=== PATIENT | male | born 1940 | race Caucasian/White ===

== ENCOUNTER 2019-12-14 08:19 | Inpatient (IN) ==
[2019-12-14] MEDS ORDERED: LACTATED RINGERS 1,000 ML IV ONE (08:29)
--- NOTE | 2019-12-14 08:57 | Emergency Department Note ---
Altered Mental Status HPI - General Chief Complaint: Altered Mental Status Stated Complaint: altered LOC Time Seen by Provider: 12/14/19 08:28 Source: patient Mode of arrival: wheelchair Limitations: no limitations - History of Present Illness HPI Narrative: This patient was found outside in front of the hospital by staff and he seemed confused so they brought him to the ER. The patient is able to relate quite a bit of history but he sounds like he had some confusion going on this morning. He does have a sore throat and cough. He has had some pain in his right hip and it sounds like he has had trochanteric bursitis in the past and is gotten cor tisone injections including a week ago. He relates that he was possibly supposed to come to the hospital today with his girlfriend but decided to come over early by himself with since there was no traffic and just seems a little confused about what is going on. He denies any chest pain nausea or vomiting does not feel very short of breath no headache of significance. Patient says he has a history of gout and has taken allopurinol and thinks that might be what is acting up in the hip at this time but he denies any pain in his feet. - Related Data Home Medications Medication Instructions Recorded Confirmed Allopurinol [Zyloprim] 300 mg PO DAILY 06/06/19 11/30/19 Carvedilol [Coreg] 12.5 mg PO BID 06/06/19 11/30/19 Eplerenone [Inspra] 25 mg PO DAILY 06/06/19 11/30/19 Folic Acid 1 mg PO DAILY 06/06/19 11/30/19 Furosemide [Lasix] 80 mg PO BID 06/06/19 11/30/19 Lisinopril [Zestril] 40 mg PO DAILY 06/06/19 11/30/19 Mirtazapine [Remeron] 30 mg PO HS 06/06/19 11/30/19 Pot Chloride/Pot Bicarb/Cit AC 20 meq PO DAILY 06/06/19 11/30/19 [Potassium Cl 25 Meq Tab Eff] Rosuvastatin [Crestor] 20 mg PO HS 06/06/19 11/30/19 Sertraline [Zoloft] 150 mg PO DAILY 06/06/19 11/30/19 amLODIPine [Norvasc] 10 mg PO DAILY 06/06/19 11/30/19 cycloSPORINE [Cyclosporine] 100 mg PO BID 06/06/19 11/30/19 Previous Rx's Medication Instructions Recorded prednisone 20 mg tablet 20 mg PO BID #10 tab 11/30/19 Allergies Allergy/AdvReac Type Severity Reaction Status Date / Time No Known Drug Allergies Allergy Verified 12/14/19 08:22 Review of Systems All systems ED: reviewed and negative except as stated. Past Medical History - Past Medical History [facility] Narrative: Medical History (Last Reviewed 11/30/19 @ 14:34 by Bacilio Babcock PA-C) Acute retention of urine (Acute) Acute alcohol intoxication (Acute) Low back pain (Chronic) Systolic dysfunction (Chronic) Aortic insufficiency (Chronic) Aortic stenosis (Chronic) Left ventricular hypertrophy (Chronic) Vitamin D insufficiency (Chronic) EVERARDO (obstructive sleep apnea) (Chronic) Gout (Chronic) Uric acid kidney stone (Chronic) Obesity (Chronic) Hyperlipidemia (Chronic) Chronic kidney disease (Chronic) Hypertension (Chronic) Urinary tract infection (Acute) Retention of urine (Acute) Past Surgical History (Last Reviewed 11/30/19 @ 14:35 by Bacilio Babcock PA-C) H/O repair of rotator cuff (Chronic) History of heart valve repair (Chronic 03/28/15) History of lumbar fusion (Chronic) Family History (Last Reviewed 11/30/19 @ 14:35 by Bacilio Babcock PA-C) Other No pertinent family history Medical history: Reports: hyperlipidemia, hypertension, kidney stones, renal disease, valvular heart disease, other (acute retention of urine.rostate cancer. Systolic dysfunction. Aortic insufficiency and aortic stenosis. Left ventricular hypertrophy. Vitamin D insufficiency. Obstructive sleep apnea. Gout. Urinary tract infection.) Surgical history ED: Reports: heart valve replacement, other (repair of rotator cuff.) - Social History smoking status: Never smoker Alcohol use: Reports: None Drug use: Reports: none Physical Exam He does have some mild tenderness about the right hip area. Limitations: no limitations General appearance: alert Head: atraumatic Eye: Present: normal appearance ENT: Present: normal exam Neck: Present: normal inspection Chest: Present: normal inspection Respiratory: Present: normal lung sounds bilaterally Cardiovascular: Present: regular rate, normal rhythm, normal heart sounds Abdominal: Present: soft. Absent: distention, tenderness Neurological: Present: alert Psychiatric: Present: normal affect Skin: Present: warm, dry Course Vital Signs Temperature 97.5 F 12/14/19 08:20 Pulse Rate 73 12/14/19 08:20 Respiratory Rate 18 12/14/19 08:20 Blood Pressure 127/69 12/14/19 08:20 Pulse Oximetry (%) 97 12/14/19 08:20 Temperature 97.5 F 12/14/19 08:20 Pulse Rate 73 12/14/19 08:20 Respiratory Rate 18 12/14/19 08:20 Blood Pressure 127/69 12/14/19 08:20 Pulse Oximetry (%) 97 12/14/19 08:20 Altered Mental Status - MDM Narrative Medical decision making narrative: I will be handing this patient off to Dr. Lipscomb at change of shift at 9 AM. - Lab Data Result diagrams: 12/14/19 08:40 12/14/19 08:39 Disposition Pt seen by VENEER SANDER/PA only: No Clinical Impression: Altered mental status Disposition: Still a Patient Condition: Good Referrals: Junior Mancera MD [Primary Care Provider] -
--- NOTE | 2019-12-14 08:59 | XRay Report ---
CLINICAL INFORMATION: Altered mental status COMPARISON: 03/28/2015 FINDINGS: Mild cardiomegaly is unchanged. Mitral annular calcification again noted. Mediastinum and pulmonary vessels are normal. Lungs are clear. No effusions. IMPRESSION: Mild cardiomegaly. No acute disease Interpreted and Authenticated by: Lane Grimaldo 12/14/19
--- NOTE | 2019-12-14 09:01 | Cat Scan Report ---
CLINICAL INFORMATION: COMPARISON: None. TECHNIQUE: 2.5 mm helical slices were obtained in the skull base to vertex. Following reconstruction, axial reformatted images were reviewed at bone and parenchymal windows. The exam was performed using radiation dose optimization techniques including, but not limited to, automated exposure control, adjustment of the mA and/or kV according to patient size and use of iterative reconstruction technique. FINDINGS: The ventricles, sulci, fissures, and cisterns are symmetrically enlarged compatible with mild age-related atrophy. No extra-axial fluid collections are identified. Mild patchy chronic ischemic changes in the deep cerebral white matter expected for age. There is no evidence of hemorrhage, mass effect, or edema. Bone windows show no osseous abnormality. IMPRESSION: Mild atrophy and mild chronic ischemic changes in the deep cerebral white matter - expected for age. Opacification right posterior ethmoid air cell and mucosal thickening in the remaining visualized ethmoid air cells. Interpreted and Authenticated by: Lane Grimaldo 12/14/19
[2019-12-14 09:12] LABS: Basophils # (Auto) 0.03 K/mcL (0.00-0.30); Basophils % (Auto) 0.4 % (0.0-2.0); Eosinophils % (Auto) 4.9 % (0.0-7.0); Granulocytes % (Auto) 55.3 % (38.0-78.0); Hematocrit 35.6 % (40.1-51.0); Hemoglobin 11.9 g/dL (13.7-17.5); Lymphocytes # (Auto) 2.07 K/mcL (1.50-4.80); Lymphocytes % (Auto) 25.2 % (15.5-49.0); Mean Cell Volume 95.4 fL (80.0-100.0); Mean Corpuscular HGB Conc 33.4 g/dL (31.0-36.0); Mean Platelet Volume 12.5 fL (7.4-10.4); Monocytes # (Auto) 1.17 K/mcL (0.10-0.90); Monocytes % (Auto) 14.2 % (1.0-12.0); Platelet Count 127 K/mcL (140-440); RBC 3.73 M/mcL (4.63-6.08); Red Cell Distribution Width 13.6 % (11.5-14.5); WBC 8.2 K/mcL (4.50-11.00)
[2019-12-14 09:31] LABS: ALT/SGPT 34 U/l (0-40); AST/SGOT 15 U/l (0-37); Albumin 3.9 gm/dL (3.2-5.2); Albumin/Globulin Ratio 1.3 (1.0-2.3); Alkaline Phosphatase 66 U/L (39-117); Bilirubin,Total 0.5 mg/dL (0.0-1.0); Blood Urea Nitrogen 39 mg/dl (8-23); Calcium 10.4 mg/dl (8.6-10.4); Carbon Dioxide 22 mmol/L (22-30); Chloride 101 mmol/L (96-108); Globulin 3.1 gm/dL (2.2-3.7); Glomerular Filtration Rate 23; Glucose 101 mg/dL (70-105)
[2019-12-14] MEDS ORDERED: 0.9 % SODIUM CHLORIDE 1,000 ML IV ONE (09:37)
--- NOTE | 2019-12-14 10:13 | Emergency Department Note ---
General Adult HPI - General Chief complaint: Altered Mental Status Stated complaint: altered LOC Time Seen by Provider: 12/14/19 08:28 Source: patient Mode of arrival: wheelchair Limitations: no limitations - History of Present Illness HPI Narrative: 79-year-old male comes in for evaluation of general malaise. Checked out to me by Dr. devlin at shift change. I reviewed his note Went to reevaluate the patient and note the patient has gross hearing loss but is able to communicate when speaking loudly. He was sleeping soundly at the time of my entrance Of note he reports some jewelry making with mercury (?) and drinking alcohol last night - Related Data Home Medications Medication Instructions Recorded Confirmed Allopurinol [Zyloprim] 300 mg PO DAILY 06/06/19 12/14/19 Carvedilol [Coreg] 12.5 mg PO BID 06/06/19 12/14/19 Eplerenone [Inspra] 50 mg PO DAILY 06/06/19 12/14/19 Furosemide [Lasix] 80 mg PO BID 06/06/19 12/14/19 Lisinopril [Zestril] 40 mg PO DAILY 06/06/19 12/14/19 Mirtazapine [Remeron] 30 mg PO HS 06/06/19 12/14/19 Pot Chloride/Pot Bicarb/Cit AC 20 meq PO DAILY 06/06/19 12/14/19 [Potassium Cl 25 Meq Tab Eff] Rosuvastatin [Crestor] 20 mg PO HS 06/06/19 12/14/19 Sertraline [Zoloft] 150 mg PO DAILY 06/06/19 12/14/19 amLODIPine [Norvasc] 10 mg PO DAILY 06/06/19 12/14/19 HYDROcodone/APAP 5/325MG [[place] 1 tab PO Q6HP PRN 12/14/19 12/14/19 5-325Mg] Zolpidem Tartrate [Zolpidem 12.5 mg PO HS 12/14/19 12/14/19 Tartrate ER] Allergies Allergy/AdvReac Type Severity Reaction Status Date / Time No Known Drug Allergies Allergy Verified 12/14/19 08:22 Past Medical History - Past Medical History Source: old records reviewed Medical history: Reports: hyperlipidemia, hypertension, kidney stones, renal disease, valvular heart disease, other (acute retention of urine.rostate cancer. Systolic dysfunction. Aortic insufficiency and aortic stenosis. Left ventricular hypertrophy. Vitamin D insufficiency. Obstructive sleep apnea. Gou t. Urinary tract infection.) Surgical history ED: Reports: heart valve replacement, other (repair of rotator cuff.) - Social History smoking status: Never smoker Alcohol use: Reports: Frequently Drug use: Reports: none Physical Exam He was sleeping at the time of my entrance. Gross hearing loss is noted. Does have some black rivers on his fingers but is unclear what this is from Limitations: no limitations General appearance: alert Course Vital Signs Temperature 97.5 F 12/14/19 08:20 Pulse Rate 73 12/14/19 08:20 Respiratory Rate 18 12/14/19 08:20 Blood Pressure 127/69 12/14/19 08:20 Pulse Oximetry (%) 97 12/14/19 08:20 Temperature 97.5 F 12/14/19 08:20 Pulse Rate 89 12/14/19 11:17 Respiratory Rate 18 12/14/19 11:17 Blood Pressure 132/86 12/14/19 11:17 Pulse Oximetry (%) 98 12/14/19 11:17 Medical Decision Making - Lab Data Lab results reviewed: Yes I reviewed the patient's lab results. Result diagrams: 12/14/19 08:40 12/14/19 08:39 Lab Results 12/14/19 12/14/19 12/14/19 Range/Units 08:39 08:39 08:40 WBC 8.2 (4.50-11.00) K/mcL RBC 3.73 L (4.63-6.08) M/mcL Hgb 11.9 L (13.7-17.5) g/dL Hct 35.6 L (40.1-51.0) % MCV 95.4 (80.0-100.0) fL MCH 31.9 (26.0-34.0) pg MCHC 33.4 (31.0-36.0) g/dL RDW 13.6 (11.5-14.5) % Plt Count 127 L (140-440) K/mcL MPV 12.5 H (7.4-10.4) fL Gran % 55.3 (38.0-78.0) % Lymph % (Auto) 25.2 (15.5-49.0) % Boy[place] % (Auto) 14.2 H (1.0-12.0) % Eos % (Auto) 4.9 (0.0-7.0) % Baso % (Auto) 0.4 (0.0-2.0) % Gran # 4.56 (1.80-8.00) K/mcL Lymph # (Auto) 2.07 (1.50-4.80) K/mcL Boyle # (Auto) 1.17 H (0.10-0.90) K/mcL Eos # (Auto) 0.40 (0.00-0.70) K/mcL Baso # (Auto) 0.03 (0.00-0.30) K/mcL VBG Lactic Acid (0.5-2.0) mmol/L Sodium 135 (133-145) mmol/L Potassium 5.1 (3.3-5.1) mmol/L Chloride 101 (96-108) mmol/L Carbon Dioxide 22 (22-30) mmol/L Anion Gap 12.0 (8-16) BUN 39 H (8-23) mg/dl Creatinine 2.6 H (0.7-1.2) mg/dl GFR Calculation 23 Glucose 101 (70-105) mg/dL Calcium 10.4 (8.6-10.4) mg/dl Total Bilirubin 0.5 (0.0-1.0) mg/dL AST 15 (0-37) U/l ALT 34 (0-40) U/l Alkaline Phosphatase 66 (39-117) U/L Troponin T < 0.01 (0-0.03) ng/ml Total Protein 7.0 (5.9-8.4) gm/dL Albumin 3.9 (3.2-5.2) gm/dL Globulin 3.1 (2.2-3.7) gm/dL Albumin/Globulin Ratio 1.3 (1.0-2.3) Urine Color Urine Appearance Urine pH (5.0-9.0) Ur Specific [place] (1.000-1.035) Urine Protein (NEG) mg/dL Urine Glucose (UA) (NEG) mg/dL Urine Ketones (NEG) mg/dL Urine Occult Blood (<0.03) mg/dL Urine Nitrate (NEG) Urine Bilirubin (NEG) mg/dL Urine Urobilinogen (NEG) mg/dL Ur Leukocyte Esterase (NEG) /uL Urine RBC (0-1) /hpf Urine WBC (0-4) /hpf Ur Squamous Epith Cells (0-4) /hpf Urine Bacteria (0) /hpf Urine Mucus (0) /hpf Ur Culture Indicated? Ethyl Alcohol (<0.010) gm/dl 12/14/19 12/14/19 12/14/19 Range/Units 08:58 09:34 10:27 WBC (4.50-11.00) K/mcL RBC (4.63-6.08) M/mcL Hgb (13.7-17.5) g/dL Hct (40.1-51.0) % MCV (80.0-100.0) fL MCH (26.0-34.0) pg MCHC (31.0-36.0) g/dL RDW (11.5-14.5) % Plt Count (140-440) K/mcL MPV (7.4-10.4) fL Gran % (38.0-78.0) % Lymph % (Auto) (15.5-49.0) % [place]le % (Auto) (1.0-12.0) % Eos % (Auto) (0.0-7.0) % Baso % (Auto) (0.0-2.0) % Gran # (1.80-8.00) K/mcL Lymph # (Auto) (1.50-4.80) K/mcL [place] # (Auto) (0.10-0.90) K/mcL Eos # (Auto) (0.00-0.70) K/mcL Baso # (Auto) (0.00-0.30) K/mcL VBG Lactic Acid 1.3 (0.5-2.0) mmol/L Sodium (133-145) mmol/L Potassium (3.3-5.1) mmol/L Chloride (96-108) mmol/L Carbon Dioxide (22-30) mmol/L Anion Gap (8-16) BUN (8-23) mg/dl Creatinine (0.7-1.2) mg/dl GFR Calculation Glucose (70-105) mg/dL Calcium (8.6-10.4) mg/dl Total Bilirubin (0.0-1.0) mg/dL AST (0-37) U/l ALT (0-40) U/l Alkaline Phosphatase (39-117) U/L Troponin T (0-0.03) ng/ml Total Protein (5.9-8.4) gm/dL Albumin (3.2-5.2) gm/dL Globulin (2.2-3.7) gm/dL Albumin/Globulin Ratio (1.0-2.3) Urine Color Straw Urine Appearance Clear Urine pH 6.0 (5.0-9.0) Ur Specific [place] 1.011 (1.000-1.035) Urine Protein 30 A (NEG) mg/dL Urine Glucose (UA) Negative (NEG) mg/dL Urine Ketones Neg (NEG) mg/dL Urine Occult Blood Neg (<0.03) mg/dL Urine Nitrate Neg (NEG) Urine Bilirubin Neg (NEG) mg/dL Urine Urobilinogen Neg (NEG) mg/dL Ur Leukocyte Esterase Neg (NEG) /uL Urine RBC 0 (0-1) /hpf Urine WBC 1 (0-4) /hpf Ur Squamous Epith Cells 0 (0-4) /hpf Urine Bacteria 0 (0) /hpf Urine Mucus Few (0) /hpf Ur Culture Indicated? No Ethyl Alcohol < 0.010 (<0.010) gm/dl - Radiology Data Radiology results reviewed: Yes I reviewed the patient's radiology results. CT scan of the head shows ethmoid sinusitis but otherwise compatible with age degenerative findings. Chest x-ray no acute findings Disposition Pt seen by CHIEF HUMAN RESOURCES OFFICER/PA only: No Clinical Impression: Ethmoid sinusitis Qualifiers: Chronicity: acute Recurrence: not specified as recurrent Qualified Code(s): J01.20 - Acute ethmoidal sinusitis, unspecified Acute on chronic kidney failure Qualifiers: Acute renal failure type: unspecified Chronic kidney disease stage: unspecified stage Qualified Code(s): N17.9 - Acute kidney failure, unspecified; N18.9 - Chronic kidney disease, unspecified Altered mental status Qualifiers: Altered mental status type: unspecified Qualified Code(s): R41.82 - Altered mental status, unspecified Summary: On review of the labs it does look like he is kidneys have progressed to a baseline of 1.6 to now 2.6 creatinine level. BUN is also elevated indicating acute on chronic kidney failure. He is already received 1 L of fluid so we will give him a liter of normal saline as this is likely prerenal. Start amoxicillin for severe ethmoid sinusitis with lesser pansinusitis. Urinalysis is still pending as he has not urinated for us. Influenza and strep are negative Urinalysis [id number] dipstick showed normal urine Discussed with hospitalist, Dr. Raya who agreed to accept the patient for further care and evaluation in the hospital Mercury lab is pending Disposition: Xfer As Inpt ([facility]) Condition: Fair Referrals: Junior Mancera MD [Primary Care Provider] -
[2019-12-14 10:18] LABS: Alcohol, Blood < 10.0 mg/dL (<10); Alcohol,Blood < 0.010 gm/dl (<0.010)
[2019-12-14] MEDS ORDERED: AMOXICILLIN 400 MG/5 ML PO SCH (10:30)
[2019-12-14] MEDS ORDERED: AMOXICILLIN 250 MG PO ONE (11:13)
[2019-12-14 11:15] LABS: Appearance,Urine CLEAR; Bacteria,Urine 0 /hpf (0); Bilirubin,Urine NEG (NEG); Color,Urine STRAW; Culture Indicated,Urine NO; Glucose,Urine (UA) NEGATIVE (NEG); Ketones,Urine NEG (NEG); Leukocyte Esterase,Urine NEG /uL (NEG); Mucus,Urine FEW /hpf (0); Nitrate,Urine NEG (NEG); Protein,Urine 30 mg/dL (NEG); Specific Gravity,Urine 1.011 (1.000-1.035); Urine Blood NEG mg/dL (<0.03); Urine RBC 0 /hpf (0-1); Urine Squamous Epithelial Cell 0 /hpf (0-4); Urine WBC 1 /hpf (0-4); Urobilinogen,Urine NEG (NEG)
[2019-12-14] MEDS ORDERED: ONDANSETRON 4 MG/2 ML VIAL IV PRN (13:36)
[2019-12-14] MEDS ORDERED: ACETAMINOPHEN 325 MG TABLET PO PRN (13:36)
[2019-12-14] MEDS: 0.9 % SODIUM CHLORIDE 1,000 ML IV SCH (14:35)
[2019-12-14] MEDS: 0.9 % SODIUM CHLORIDE 10 ML SYRINGE IV SCH ×2 (14:36→22:20)
[2019-12-14] MEDS: HYDROcodone/APAP 5/325MG TABLET PO PRN (16:04)
--- NOTE | 2019-12-14 16:42 | Internal Med History&Physical ---
Medical - H&P: [facility] Patient information: Note initiated : 12/14/19 at 4:42 pm Service Date, if different from initiated Date: [] Patient: Jl Jones 79 y/o M admitted on 12/14/19 for Altered LOC. Chief Complaint: [] History of present illness: Mr. 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 Patient states that he awoke this morning on the floor "delirious". History is a bit circular, he tends to want to drift off to sleep. Eventually states that he did fall out of bed and just stayed on the floor. He had an appointment to establish at the pain clinic today, when he awoke this morning he decided just to drive to the clinic to await his appointment. There he is apparently found, was confused and brought to the ED. Patient states he had a couple beers last night. Used to be a heavy drinker but cut back significantly more than 10 years ago. 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 He was using methyl ethyl ketone as a solving, but was trying hard to avoid exposures. There is also a history obtained by Dr. Newman at the patient also had used mercury and some of his hobbies. Patient denies fever, he is felt chilled. Feels a little short of breath, but no cough or sputum production. He does have chronic left trochanteric hip pain which is stable. Denies any abdominal pain or nausea or vomiting. Denies any chest pain/tightness/squeezing. No dysuria. In the ED, the patient is found to have a creatinine of 2.6. Most recent creatinines in our system were 1.2/1.[address] range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 Reynolds, his n ephrologist, in October his creatinine was 1.9. He is being admitted for encephalopathy as well as acute renal failure. ROS unobtainable: other (Patient loses concentration on the interview and the remainder of a reliable review of systems cannot be obtained) Medical - H&P: PMH Medical history: Chronic kidney disease, stage III Membranous glomerulonephritis Low back pain (Chronic) Systolic dysfunction (Chronic) Aortic insufficiency (Chronic) Aortic stenosis (Chronic) Left ventricular hypertrophy (Chronic) Vitamin D insufficiency (Chronic) EVERARDO (obstructive sleep apnea) (Chronic) Gout (Chronic) Uric acid kidney stone (Chronic) Obesity (Chronic) Hyperlipidemia (Chronic) Chronic kidney disease (Chronic) Hypertension (Chronic) Urinary tract infection (Acute) Retention of urine (Acute) Surgical history: H/O repair of rotator cuff (Chronic) History of heart valve repair (Chronic 03/28/15) History of lumbar fusion (Chronic) Pertinent family history: Other No pertinent family history Social history: Patient lives by himself. He does not smoke. He occasionally drinks. Medical - H&P: Meds Home Medications Medication Instructions Recorded Confirmed Type Allopurinol [Zyloprim] 300 mg PO DAILY 06/06/19 12/14/19 History Carvedilol [Coreg] 12.5 mg PO BID 06/06/19 12/14/19 History Eplerenone [Inspra] 50 mg PO DAILY 06/06/19 12/14/19 History Furosemide [Lasix] 80 mg PO BID 06/06/19 12/14/19 History Lisinopril [Zestril] 40 mg PO DAILY 06/06/19 12/14/19 History Mirtazapine [Remeron] 30 mg PO HS 06/06/19 12/14/19 History Pot Chloride/Pot Bicarb/Cit AC 20 meq PO DAILY 06/06/19 12/14/19 History [Potassium Cl 25 Meq Tab Eff] Rosuvastatin [Crestor] 20 mg PO HS 06/06/19 12/14/19 History Sertraline [Zoloft] 150 mg PO DAILY 06/06/19 12/14/19 History amLODIPine [Norvasc] 10 mg PO DAILY 06/06/19 12/14/19 History HYDROcodone/APAP 5/325MG [[place] 1 tab PO Q6HP PRN 12/14/19 12/14/19 History 5-325Mg] Zolpidem Tartrate [Zolpidem 12.5 mg PO HS 12/14/19 12/14/19 History Tartrate ER] cycloSPORINE [Cyclosporine] 100 mg PO BID 12/14/19 12/14/19 History Allergies Allergy/AdvReac Type Severity Reaction Status Date / Time No Known Drug Allergies Allergy Verified 12/14/19 08:22 Medical - H&P: Exam - Constitutional Vitals: Temp Pulse Resp BP Pulse Ox 98.0 F 85 20 139/68 96 12/14/19 16:00 12/14/19 16:00 12/14/19 16:00 12/14/19 16:00 12/14/19 16:00 Exam: GENERAL: Awake, then drifts off. Oriented to self. Looks nontoxic. HEENT: Atraumatic. PERRL at 3 mm, conjunctiva clear, no scleral icterus. Heari ng grossly intact. Oropharynx with tacky mucous membranes, no lip or gum lesions, no pharyngeal erythema or exudate. Tongue midline, palate rises symmetrically. NECK: Supple without meningismus, good passive and active range of motion, no thyromegaly RESPIRATORY: Breath sounds clear bilaterally without wheezes or rhonchi. Respiratory effort is unlabored. CARDIOVASCULAR: Regular rate and rhythm, no murmur or rub. Trace peripheral edema. Carotid pulses 2+ without bruit. GI: Abdomen soft, obese, nontender, no guarding or rebound. Bowel sounds are present. Liver margin not palpable. MUSCULOSKELETAL: No joint erythema or swelling, normal range of motion in all extremities. SKIN: Intact, warm. Skin turgor normal. NEUROLOGIC: Cranial nerves II through XII grossly intact. Muscle mass normal. Strength 5/5 in the upper and lower extremities. Sensation intact to light touch bilaterally. PSYCHIATRIC: Alert but drifts off. Oriented to self, knows that he is at the hospital. Cannot assess mood or insight. Medical - H&P: Reslt - Labs CBC & Chem 7: 12/14/19 08:40 12/14/19 08:39 Labs: Short CBC 12/14/19 Range/Units 08:40 WBC 8.2 (4.50-11.00) K/mcL Hgb 11.9 L (13.7-17.5) g/dL Hct 35.6 L (40.1-51.0) % Plt Count 127 L (140-440) K/mcL BMP 12/14/19 08:39 Sodium 135 Potassium 5.1 Chloride 101 Carbon Dioxide 22 BUN 39 H Creatinine 2.6 H Glucose 101 Calcium 10.4 Cardiac Enzymes 12/14/19 Range/Units 08:39 Troponin T < 0.01 (0-0.03) ng/ml Liver Function 02/28/20 Range/Units 08:39 Total Bilirubin 0.5 (0.0-1.0) mg/dL AST 15 (0-37) U/l ALT 34 (0-40) U/l Alkaline Phosphatase 66 (39-117) U/L Albumin 3.9 (3.2-5.2) gm/dL Urine 12/14/19 Range/Units 10:27 Urine Color Straw Urine Appearance Clear Urine pH 6.0 (5.0-9.0) Ur Specific [place] 1.011 (1.000-1.035) Urine Protein 30 A (NEG) mg/dL Urine Glucose (UA) Negative (NEG) mg/dL - EKG Data EKG comments: NSR at 81, old LBBB - Imaging and Cardiology CT scan - head Status: image reviewed by me Additional comments: IMPRESSION: Mild atrophy and mild chronic ischemic changes in the deep cerebral white matter - expected for age. Opacification right posterior ethmoid air cell and mucosal thickening in the remaining visualized ethmoid air cells. Chest x-ray Status: image reviewed by me Additional comments: IMPRESSION: Mild cardiomegaly. No acute disease Medical - H&P: A/P - Narrative A/P Narrative: 79-year-old male found outside the hospital and medical office buildings confused. Encephalopathy. Unclear etiology. Renal failure not to such an extent that I might expect uremic induced changes in mental status. Possibly secondary to exposure to methyl ethyl ketone, though he states he was careful to avoid exposures. He also gave a history of possibly using mercury with his hobbies to Dr. Newman. Heavy metal exposure certainly possible, though this is an acute and not a chronic change in mental status. 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 States he did have a couple of beers last night, unlikely to be related to withdrawal. No evidence of chronic liver disease to suggest source of encephalopathy. Acute renal failure on chronic kidney disease. Baseline was CKD stage III. Creatinine was 1.9 on 10/26/2019. Has an underlying membranous glomerulonephritis. Supposed to be on cyclosporine, recently had that filled. Also on eplerenone, furosemide and lisinopril all of which could be contributing to his elevated creatinine. Ethmoid sinusitis with evidence of other pansinusitis. Unlikely to explain his presentation. 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
[2019-12-14] MEDS: HEPARIN 5,000 UNIT/ML VIAL SQ SCH (20:10)
[2019-12-14] MEDS: CARVEDILOL 12.5 MG TABLET PO SCH (20:10)
[2019-12-14] MEDS: AMOXICILLIN 250 MG CAPSULE PO SCH (20:10)
[2019-12-14] MEDS: MIRTAZAPINE 15 MG TABLET PO SCH (20:10)
[2019-12-14] MEDS: FAMOTIDINE 20 MG TABLET PO SCH (20:11)
[2019-12-14] MEDS: SENNOSIDES 1 TABLET PO SCH (20:11)
[2019-12-14] MEDS: ATORVASTATIN 20 MG TABLET PO SCH (20:11)
[2019-12-14] MEDS: DOCUSATE SODIUM 100 MG CAPSULE PO SCH (20:11)
[2019-12-15] MEDS: 0.9 % SODIUM CHLORIDE 1,000 ML IV SCH ×4 (00:29→21:53)
[2019-12-15] MEDS: HYDROcodone/APAP 5/325MG TABLET PO PRN ×2 (01:06→15:30)
[2019-12-15] MEDS: 0.9 % SODIUM CHLORIDE 10 ML SYRINGE IV SCH ×3 (05:02→20:06)
[2019-12-15 07:13] LABS: ALT/SGPT 24 U/l (0-40); AST/SGOT 12 U/l (0-37); Albumin 3.3 gm/dL (3.2-5.2); Albumin/Globulin Ratio 1.3 (1.0-2.3); Alkaline Phosphatase 55 U/L (39-117); Bilirubin,Direct < 0.2 mg/dL (0.0-0.3); Bilirubin,Total 0.5 mg/dL (0.0-1.0); Calcium 9.5 mg/dl (8.6-10.4); Carbon Dioxide 23 mmol/L (22-30); Chloride 104 mmol/L (96-108); Globulin 2.6 gm/dL (2.2-3.7); Glucose 123 mg/dL (70-105); Lactate Dehydrogenase 196 U/L (94-250); Phosphorous 3.5 mg/dL (2.7-4.5); Uric Acid 5.3 mg/dL (2.5-8.0)
[2019-12-15 07:14] LABS: Blood Urea Nitrogen 28 mg/dl (8-23); Glomerular Filtration Rate 31; Triglycerides 325 mg/dl (<150)
[2019-12-15] MEDS ORDERED: MAGNESIUM SULFATE 32.48 MEQ in DEXTROSE 5% IN WATER 50 ML IV ONE (09:22)
[2019-12-15] MEDS: ALLOPURINOL 300 MG TABLET PO SCH (09:24)
[2019-12-15] MEDS: CARVEDILOL 12.5 MG TABLET PO SCH ×2 (09:24→20:05)
[2019-12-15] MEDS: amLODIPine 10 MG TABLET PO SCH (09:24)
[2019-12-15] MEDS: AMOXICILLIN 250 MG CAPSULE PO SCH ×2 (09:24→20:05)
[2019-12-15] MEDS: DOCUSATE SODIUM 100 MG CAPSULE PO SCH ×2 (09:29→20:05)
[2019-12-15] MEDS: SERTRALINE 50 MG TABLET PO SCH (09:29)
[2019-12-15] MEDS: HEPARIN 5,000 UNIT/ML VIAL SQ SCH ×2 (09:29→20:06)
[2019-12-15] MEDS: FAMOTIDINE 20 MG TABLET PO SCH ×2 (09:29→20:05)
[2019-12-15] MEDS ORDERED: MAGNESIUM SULFATE 4 GM/100 ML BAG IV SCH (10:00)
--- NOTE | 2019-12-15 12:18 | Internal Med Progress Note ---
Medical - PN: Subj Patient information: Note initiated : 12/15/19 at 12:16 pm Service Date, if different from initiated Date: [] Patient: Jl Jones a 79 y/o M admitted on 12/14/19 for Altered LOC. Chief Complaint: [] Interval history: 12/14 Mr. 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 Patient states that he awoke this morning on the floor "delirious". History is a bit circular, he tends to want to drift off to sleep. Eventually states that he did fall out of bed and just stayed on the floor. He had an appointment to establish at the pain clinic today, when he awoke this morning he decided just to drive to the clinic to await his appointment. There he is apparently found, was confused and brought to the ED. Patient states he had a couple beers last night. Used to be a heavy drinker but cut back significantly more than 10 years ago. 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 He was using methyl ethyl ketone as a so lving, but was trying hard to avoid exposures. There is also a history obtained by Dr. Newman at the patient also had used mercury and some of his hobbies. Patient denies fever, he is felt chilled. Feels a little short of breath, but no cough or sputum production. He does have chronic left trochanteric hip pain which is stable. Denies any abdominal pain or nausea or vomiting. Denies any chest pain/tightness/squeezing. No dysuria. In the ED, the patient is found to have a creatinine of 2.6. Most recent creatinines in our system were 1.2/1.3 range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 Reynolds, his spiritual care coordinator, in October his creatinine was 1.9. He is being admitted for encephalopathy as well as acute renal failure. Patient is feeling better today. Vaguely recalls coming to the emergency dep artment yesterday. States that he has been "sick" for a few weeks, with malaise. Has felt cold and chilled alternating with feeling hot. Had some headache and myalgias, now with sore throat and congestion. Had evidence of sinusitis on CT. Evening before presentation, the patient had a couple glasses of wine. He was also working with methyl ethyl ketone, was not wearing gloves and notes he did get some on his hands, did not wear respirator, was working inside and not turned on the fan. Patient does not have a sense of smell, unsure if there were vapors. - Constitutional Vitals: Vital Signs Temp Pulse Resp BP Pulse Ox 98.6 F 70 22 171/88 96 12/15/19 07:53 12/15/19 07:53 12/15/19 07:53 12/15/19 07:53 12/15/19 07:53 Period Temp Pulse Resp BP Sys/Blackwood Pulse Ox Last 24 Hr 97.9 F-99 F 67-87 15-22 131-171/68-90 93-97 Intake and Output 12/14/19 12/15/19 12/15/19 21:59 05:59 13:59 Intake Total 240 1230 Output Total 725 1025 150 Balance -485 205 -150 Weight 206 lb 206 lb Patient Weight 12/16/19 05:59 Weight 206 lb Intake & Output: Intake & Output 12/14/19 12/15/19 12/15/19 21:59 05:59 13:59 Intake Total 240 1230 Output Total 725 1025 150 Balance -485 205 -150 Weight 206 lb 206 lb Intake: IV 990 Sodium Chloride 0.9% 1,000 ml @ 990 100 mls/hr IV .Q10H [facility] Rx#: [id number] Oral 240 240 Output: Void Amount 725 1025 150 Other: Meal Breakfast Percent of Meal Consumed 100% Feeding Ability Independent Urine Appearance Clear Clear Urine Color Pale Dark Yellow # Voids 1 Exam: General: In bed no acute distress HEENT: Hard of hearing, unchanged Chest: Clear bilaterally Cardiovascular: Regular, 1/6 systolic murmur along left sternal border Abdomen: Soft, nontender Neuro: Alert, oriented to person, place, situation. Vaguely recalls coming to the emergency department. Able to recall the events of the evening prior to his presentation yesterday. Feels generally weak. Medical - PN: Obj Da - Labs CBC & Chem 7: 12/14/19 08:40 12/15/19 05:32 Labs: Abnormal Lab Results 12/15/19 12/14/19 12/14/19 05:32 10:27 08:40 RBC 3.73 L Hgb 11.9 L Hct 35.6 L Plt Count 127 L MPV 12.5 H [place] % (Auto) 14.2 H [place] # (Auto) 1.17 H BUN 28 H Creatinine 2.0 H Glucose 123 H Magnesium 1.3 L Triglycerides 325 H Urine Protein 30 A 12/14/19 08:39 RBC Hgb Hct Plt Count MPV [place] % (Auto) [place] # (Auto) BUN 39 H Creatinine 2.6 H Glucose Magnesium Triglycerides Urine Protein Meds: Medications Acetaminophen (Tylenol) 650 mg PO Q6HP PRN; Protocol PRN Reason: Per Pain Protocol/Fever > 101 Hydrocodone Bitart/Acetaminophen ([place] 5/325mg) 1 tab PO Q6HP PRN; Protocol PRN Reason: Pain Last Admin: 12/15/19 01:06 Dose: 1 tab Documented by: Allopurinol (Zylopriim) 300 mg PO DAILY [facility] Last Admin: 12/15/19 09:24 Dose: 300 mg Documented by: Amlodipine Besylate (Norvasc) 10 mg PO DAILY [facility] Last Admin: 12/15/19 09:24 Dose: 10 mg Documented by: Amoxicillin (Amoxicillin) 500 mg PO BID [facility]; Protocol Last Admin: 12/15/19 09:24 Dose: 500 mg Documented by: Atorvastatin Calcium (Lipitor) 10 mg PO [facility] Last Admin: 12/14/19 20:11 Dose: 10 mg Documented by: Carvedilol (Coreg) 12.5 mg PO BID [facility] Last Admin: 12/15/19 09:24 Dose: 12.5 mg Documented by: Cyclosporine (Sandimmune) 100 mg PO BID [facility] Last Admin: 12/15/19 09:24 Dose: 100 mg Documented by: Docusate Sodium (Colace) 100 mg PO BID [facility] Last Admin: 12/15/19 09:29 Dose: 100 mg Documented by: Famotidine (Pepcid) 20 mg PO BID [facility] Last Admin: 12/15/19 09:29 Dose: 20 mg Documented by: Heparin Sodium (Porcine) (Heparin) 5,000 unit SQ Q12 [facility] Last Admin: 12/15/19 09:29 Dose: 5,000 unit Documented by: Sodium Chloride (Sodium Chloride 0.9%) 1,000 mls @ 100 mls/hr IV .Q10H [facility] Last Admin: 12/15/19 10:05 Dose: Not Given Documented by: Mirtazapine (Remeron) 30 mg PO [facility] Last Admin: 12/14/19 20:10 Dose: 30 mg Documented by: Ondansetron HCl (Zofran) 4 mg IV Q6HP PRN PRN Reason: Nausea And Vomiting Senna (Senokot) 2 tab PO [facility] Last Admin: 12/14/19 20:11 Dose: 2 tab Documented by: Sertraline HCl (Zoloft) 150 mg PO DAILY [facility] Last Admin: 12/15/19 09:29 Dose: 150 mg Documented by: Sodium Chloride (Saline Flush) 10 ml IV Q8 [facility] Last Admin: 12/15/19 05:02 Dose: Not Given Documented by: Medical - PN: A/P - Time Spent With Patient Total time spent is greater than 50% in coordination of care (as documented) at patient's floor/unit and/or counseling patient: Greater than 35 minutes - Narrative A/P Narrative: 79-year-old male found outside the hospital and medical office buildings confused. Encephalopathy. Improving. With further history, this possibly may represent a solvent exposure to methyl ethyl ketone. That can cause [employer] depression. Also can cause eye and throat irritation, which may explain some of his sore throat. On the evening prior to presentation, he is working without gloves, did have dermal exposure as well as inhalational exposure. Renal failure at presentation was not to such an extent that I might expect uremic induced changes in mental status. He also gave a history of possibly using mercury with his hobbies to Dr. Newman. Heavy metal exposure certainly possible, though this is an acute and not a chronic change in mental status. Do not suspect [employer] infection. States he did have a couple of glasses of wine the evening prior to presentation (not beers as he reported at admission), unlikely to be related to withdrawal. No evidence of chronic liver disease to suggest source of encephalopathy. Acute renal failure on chronic kidney disease. Improving/resolving. Baseline was CKD stage III. Creatinine was 1.9 on 10/26/2019. Has an underlying membranous glomerulonephritis. Supposed to be on cyclosporine, recently had that filled. Also on eplerenone, furosemide and lisinopril all of which could be contributing to his elevated creatinine. Ethmoid sinusitis with evidence of other pansinusitis. Unlikely to explain his presentation, though may explain some of his intermittent headache and congestion. Plan: Continue to monitor mental status, though improving Check RVP, given feverish symptoms, headache, sore throat (rapid flu antigen negative, RVP more sensitive) Continue with hydration and follow creatinine, likely can saline lock soon Replace magnesium Continue to hold furosemide, eplerenone and lisinopril Discussed with Dr. Reynolds, his spiritual care coordinator Continue amoxicillin for sinusitis Continue to monitor for any evidence of alcohol withdrawal, though suspect low likelihood Follow-up cyclosporine level (send out) Follow-up mercury level Medical - PN: Qual - VTE Deep Vein Thrombosis/Pulmonary Embolism Present on Admission: No
[2019-12-15] MEDS: ATORVASTATIN 20 MG TABLET PO SCH (20:05)
[2019-12-15] MEDS: MIRTAZAPINE 15 MG TABLET PO SCH (20:05)
[2019-12-15] MEDS: SENNOSIDES 1 TABLET PO SCH (20:05)
[2019-12-16] MEDS: 0.9 % SODIUM CHLORIDE 1,000 ML IV SCH ×2 (01:52→04:38)
[2019-12-16] MEDS: HYDROcodone/APAP 5/325MG TABLET PO PRN ×3 (02:06→16:30)
[2019-12-16] MEDS: 0.9 % SODIUM CHLORIDE 10 ML SYRINGE IV SCH ×3 (04:38→20:33)
[2019-12-16] MEDS: AMOXICILLIN 250 MG CAPSULE PO SCH ×2 (08:33→20:32)
[2019-12-16] MEDS: HEPARIN 5,000 UNIT/ML VIAL SQ SCH ×2 (08:34→20:33)
[2019-12-16] MEDS: DOCUSATE SODIUM 100 MG CAPSULE PO SCH ×2 (08:34→20:32)
[2019-12-16] MEDS: FAMOTIDINE 20 MG TABLET PO SCH ×2 (08:34→20:32)
[2019-12-16] MEDS: SERTRALINE 50 MG TABLET PO SCH (08:34)
[2019-12-16] MEDS: CARVEDILOL 12.5 MG TABLET PO SCH ×2 (08:35→20:32)
[2019-12-16] MEDS: amLODIPine 10 MG TABLET PO SCH (08:35)
[2019-12-16] MEDS: ALLOPURINOL 300 MG TABLET PO SCH (08:35)
[2019-12-16 09:14] LABS: ALT/SGPT 23 U/l (0-40); AST/SGOT 15 U/l (0-37); Albumin 3.6 gm/dL (3.2-5.2); Albumin/Globulin Ratio 1.3 (1.0-2.3); Alkaline Phosphatase 59 U/L (39-117); Bilirubin,Direct < 0.2 mg/dL (0.0-0.3); Bilirubin,Total 0.5 mg/dL (0.0-1.0); Blood Urea Nitrogen 27 mg/dl (8-23); Calcium 9.4 mg/dl (8.6-10.4); Carbon Dioxide 24 mmol/L (22-30); Chloride 102 mmol/L (96-108); Globulin 2.7 gm/dL (2.2-3.7); Glomerular Filtration Rate 31; Glucose 104 mg/dL (70-105); Lactate Dehydrogenase 201 U/L (94-250)
[2019-12-16 09:17] LABS: Phosphorous 2.4 mg/dL (2.7-4.5); Triglycerides 355 mg/dl (<150)
[2019-12-16] MEDS ORDERED: FUROSEMIDE 40 MG/4 ML VIAL IV ONE (12:15)
--- NOTE | 2019-12-16 16:25 | Internal Med Progress Note ---
Medical - PN: Subj Patient information: Note initiated : 12/16/19 at 4:22 pm Service Date, if different from initiated Date: [] Patient: Jl Jones a 79 y/o M admitted on 12/14/19 for Altered LOC. Chief Complaint: [] Interval history: 12/14 Mr. 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 Patient states that he awoke this morning on the floor "delirious". History is a bit circular, he tends to want to drift off to sleep. Eventually states that he did fall out of bed and just stayed on the floor. He had an appointment to establish at the pain clinic today, when he awoke this morning he decided just to drive to the clinic to await his appointment. There he is apparently found, was confused and brought to the ED. Patient states he had a couple beers last night. Used to be a heavy drinker but cut back significantly more than 10 years ago. 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 He was using methyl ethyl ketone as a solving, but was trying hard to avoid exposures. There is also a history obtained by Dr. Newman at the patient also had used mercury and some of his hobbies. Patient denies fever, he is felt chilled. Feels a little short of breath, but no cough or sputum production. He does have chronic left trochanteric hip pain which is stable. Denies any abdominal pain or nausea or vomiting. Denies any chest pain/tightness/squeezing. No dysuria. In the ED, the patient is found to have a creatinine of 2.6. Most recent creatinines in our system were 1.2/1.3 range[address] 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 Reynolds, his stitcher operator, in October his creatinine was 1.9. He is being admitted for encephalopathy as well as acute renal failure. Patient is feeling better today. Vaguely recalls coming to the emergency depa rtment yesterday. States that he has been "sick" for a few weeks, with malaise. Has felt cold and chilled alternating with feeling hot. Had some headache and myalgias, now with sore throat and congestion. Had evidence of sinusitis on CT. Evening before presentation, the patient had a couple glasses of wine. He was also working with methyl ethyl ketone, was not wearing gloves and notes he did get some on his hands, did not wear respirator, was working inside and not turned on the fan. Patient does not have a sense of smell, unsure if there were vapors. 12/15 Patient feels he is back to baseline this afternoon. Got short of breath late morning, was about 4.9 L positive and his furosemide to been held. Improved significantly after 40 mg of IV furosemide. Creatinine stable. - Constitutional Vitals: Vital Signs Temp Pulse Resp BP Pulse Ox 97.6 F 56 L 20 136/69 98 12/16/19 16:00 12/16/19 16:00 12/16/19 16:00 12/16/19 16:00 12/16/19 16:00 Period Temp Pulse Resp BP Sys/Blackwood Pulse Ox Last 24 Hr 97.6 F-98.9 F 56-70 16-20 101-167/59-80 95-98 Intake and Output 12/16/19 12/16/19 12/16/19 05:59 13:59 21:59 Intake Total 2160 120 Output Total 525 350 200 Balance 1635 -230 -200 Intake & Output: Intake & Output 12/16/19 12/16/19 12/16/19 05:59 13:59 21:59 Intake Total 2160 120 Output Total 525 350 200 Balance 1635 -230 -200 Intake: IV 1000 Sodium Chloride 0.9% 1,000 ml @ 1000 100 mls/hr IV .Q10H [facility] Rx#: [id number] Oral 1160 120 Output: Void Amount 525 350 200 Other: Meal Breakfast Percent of Meal Consumed 100% Feeding Ability Independent Urine Appearance Clear Clear Urine Color Dark Yellow Dark Yellow # Voids 1 350 Exam: General: No acute distress, laying in bed Chest: Clear bilaterally, no rales Cardiovascular: Regular, trace lower extremity edema Abdomen: Obese, soft, nontender Musculoskeletal: Tenderness over left greater trochanter Neuro: Alert, oriented to person, place, situation. Hearing is improved with hearing aids in place. Ambulating with cane. Medical - PN: Obj Da - Labs CBC & Chem 7: 12/14/19 08:40 12/16/19 08:18 Labs: Abnormal Lab Results 12/16/19 12/15/19 12/14/19 08:18 05:32 10:27 RBC Hgb Hct Plt Count MPV [place] % (Auto) [place] # (Auto) BUN 27 H 28 H Creatinine 2.0 H 2.0 H Glucose 123 H Phosphorus 2.4 L Magnesium 1.3 L Triglycerides 355 H 325 H Urine Protein 30 A 12/14/19 12/14/19 08:40 08:39 RBC 3.73 L Hgb 11.9 L Hct 35.6 L Plt Count 127 L MPV 12.5 H [place] % (Auto) 14.2 H [place] # (Auto) 1.17 H BUN 39 H Creatinine 2.6 H Glucose Phosphorus Magnesium Triglycerides Urine Protein Meds: Medications Acetaminophen (Tylenol) 650 mg PO Q6HP PRN; Protocol PRN Reason: Per Pain Protocol/Fever > 101 Hydrocodone Bitart/Acetaminophen ([place] 5/325mg) 1 tab PO Q6HP PRN; Protocol PRN Reason: Pain Last Admin: 12/16/19 08:33 Dose: 1 tab Documented by: Allopurinol (Zylopriim) 300 mg PO DAILY [facility] Last Admin: 12/16/19 08:35 Dose: 300 mg Documented by: Amlodipine Besylate (Norvasc) 10 mg PO DAILY [facility] Last Admin: 12/16/19 08:35 Dose: 10 mg Documented by: Amoxicillin (Amoxicillin) 500 mg PO BID [facility]; Protocol Last Admin: 12/16/19 08:33 Dose: 500 mg Documented by: Atorvastatin Calcium (Lipitor) 10 mg PO [facility] Last Admin: 12/15/19 20:05 Dose: 10 mg Documented by: Carvedilol (Coreg) 12.5 mg PO BID [facility] Last Admin: 12/16/19 08:35 Dose: 12.5 mg Documented by: Cyclosporine (Sandimmune) 100 mg PO BID [facility] Last Admin: 12/16/19 08:33 Dose: 100 mg Documented by: Docusate Sodium (Colace) 100 mg PO BID [facility] Last Admin: 12/16/19 08:34 Dose: 100 mg Documented by: Famotidine (Pepcid) 20 mg PO BID [facility] Last Admin: 12/16/19 08:34 Dose: 20 mg Documented by: Furosemide (Lasix) 80 mg PO BIDD [facility] Heparin Sodium (Porcine) (Heparin) 5,000 unit SQ Q12 [facility] Last Admin: 12/16/19 08:34 Dose: 5,000 unit Documented by: Lisinopril (Zestril) 40 mg PO DAILY [facility] Mirtazapine (Remeron) 30 mg PO HS [facility] Last Admin: 12/15/19 20:05 Dose: 30 mg Documented by: Ondansetron HCl (Zofran) 4 mg IV Q6HP PRN PRN Reason: Nausea And Vomiting Senna (Senokot) 2 tab PO HS [facility] Last Admin: 12/15/19 20:05 Dose: 2 tab Documented by: Sertraline HCl (Zoloft) 150 mg PO DAILY [facility] Last Admin: 12/16/19 08:34 Dose: 150 mg Documented by: Sodium Chloride (Saline Flush) 10 ml IV Q8 [facility] Last Admin: 12/16/19 12:35 Dose: 10 ml Documented by: Zolpidem Tartrate (Ambien) 5 mg PO [facility] PRN PRN Reason: Insomnia Medical - PN: A/P - Time Spent With Patient Total time spent is greater than 50% in coordination of care (as documented) at patient's floor/unit and/or counseling patient: - Narrative A/P Narrative: 79-year-old male found outside the hospital and medical office buildings confused. Encephalopathy. Improving/resolved. With further history, this possibly may represent a solvent exposure to methyl ethyl ketone. That can cause [employer] depression. Also can cause eye and throat irritation, which may explain some of his sore throat. On the evening prior to presentation, he is working without gloves, did have dermal exposure as well as inhalational exposure. Renal failure at presentation was not to such an extent that I might expect uremic induced changes in mental status. He also gave a history of possibly using mercury with his hobbies to Dr. Newman. Heavy metal exposure certainly possible, though this is an acute and not a chronic change in mental status. Do not suspect [employer] infection. States he did have a couple of glasses of wine the evening prior to presentation (not beers as he reported at admission), unlikely to be related to withdrawal. No evidence of chronic liver disease to suggest source of encephalopathy. Patient also takes zolpidem to help sleep, which may have contributed. Acute renal failure on chronic kidney disease. Improving/resolving. Baseline was CKD stage III. Creatinine was 1.9 on 10/26/2019. Has an underlying membranous glomerulonephritis. Supposed to be on cyclosporine, recently had that filled. Also on eplerenone, furosemide and lisinopril all of which could be contributing to his elevated creatinine. Ethmoid sinusitis with evidence of other pansinusitis. Unlikely to explain his presentation, though may explain some of his intermittent headache and congestion. RVP negative Plan: Saline lock Replace magnesium prn Resume furosemide and lisinopril; resume eplerenone at discharge (nonformulary) Continue amoxicillin for sinusitis Follow-up cyclosporine level (send out) Follow-up mercury level Anticipate discharge within 24 hours Medical - PN: Qual - VTE Deep Vein Thrombosis/Pulmonary Embolism Present on Admission: No
[2019-12-16] MEDS: SENNOSIDES 1 TABLET PO SCH (20:32)
[2019-12-16] MEDS: ATORVASTATIN 20 MG TABLET PO SCH (20:32)
[2019-12-16] MEDS: MIRTAZAPINE 15 MG TABLET PO SCH (20:33)
[2019-12-16] MEDS ORDERED: ZOLPIDEM 5 MG TABLET PO PRN (21:00)
[2019-12-17] MEDS: HYDROcodone/APAP 5/325MG TABLET PO PRN ×2 (01:51→11:46)
[2019-12-17] MEDS: 0.9 % SODIUM CHLORIDE 10 ML SYRINGE IV SCH (06:06)
[2019-12-17 06:41] LABS: Blood Urea Nitrogen 31 mg/dl (8-23); Calcium 9.4 mg/dl (8.6-10.4); Carbon Dioxide 25 mmol/L (22-30); Chloride 105 mmol/L (96-108); Glomerular Filtration Rate 31; Glucose 97 mg/dL (70-105)
[2019-12-17] MEDS ORDERED: FUROSEMIDE 80 MG TABLET PO SCH (08:00)
[2019-12-17] MEDS: ALLOPURINOL 300 MG TABLET PO SCH (08:23)
[2019-12-17] MEDS: amLODIPine 10 MG TABLET PO SCH (08:23)
[2019-12-17] MEDS: HEPARIN 5,000 UNIT/ML VIAL SQ SCH (08:23)
[2019-12-17] MEDS: DOCUSATE SODIUM 100 MG CAPSULE PO SCH (08:24)
[2019-12-17] MEDS: AMOXICILLIN 250 MG CAPSULE PO SCH (08:24)
[2019-12-17] MEDS: SERTRALINE 50 MG TABLET PO SCH (08:24)
[2019-12-17] MEDS: CARVEDILOL 12.5 MG TABLET PO SCH (08:24)
[2019-12-17] MEDS: FAMOTIDINE 20 MG TABLET PO SCH (08:25)
[2019-12-17] MEDS ORDERED: LISINOPRIL 20 MG TABLET PO SCH (09:00)
--- NOTE | 2019-12-17 10:35 | Discharge Summary ---
Medical - DS: Prov Patient information: Note initiated : 12/17/19 at 10:31 am Service Date, if different from initiated Date: [] Patient: Jl Jones 79 y/o M admitted on 12/14/19 for Altered LOC. Chief Complaint: [] Date of admission: 12/14/19 13:34 Discharge date: 12/17/19 Primary care physician: Junior Mancera Attending physician on admission: Madison Cardenas Consults: 12/14/19 Consult to Physician [CONS] Stat Comment: Consulting Provider: Madison Cardenas Reason For Exam: Physician to Consult Attending physician on discharge: Madison Cardenas Medical - DS: Meds - Discharge Medications Prescriptions: Amoxicillin 500 mg PO BID 5 Days #20 cap Transmission Status: Pending to [facility] Active and Home Medications: Home Medications Allopurinol [Zyloprim] 300 mg PO DAILY 06/06/19 [History Confirmed 12/14/19 Last Taken 06/06/19] Carvedilol [Coreg] 12.5 mg PO BID 06/06/19 [History Confirmed 12/14/19 Last Taken 06/06/19] Eplerenone [Inspra] 50 mg PO DAILY 06/06/19 [History Confirmed 12/14/19 Last Taken 06/06/19] Furosemide [Lasix] 80 mg PO BID 06/06/19 [History Confirmed 12/14/19 Last Taken 06/06/19] Lisinopril [Zestril] 40 mg PO DAILY 06/06/19 [History Confirmed 12/14/19 Last Taken 06/06/19] Mirtazapine [Remeron] 30 mg PO HS 06/06/19 [History Confirmed 12/14/19 Last Taken 06/06/19] Pot Chloride/Pot Bicarb/Cit AC [Potassium Cl 25 Meq Tab Eff] 20 meq PO DAILY 06/06/19 [History Confirmed 12/14/19 Last Taken 06/06/19] Rosuvastatin [Crestor] 20 mg PO HS 06/06/19 [History Confirmed 12/14/19 Last Taken 06/06/19] Sertraline [Zoloft] 150 mg PO DAILY 06/06/19 [History Confirmed 12/14/19 Last Taken 06/06/19] amLODIPine [Norvasc] 10 mg PO DAILY 06/06/19 [History Confirmed 12/14/19 Last Taken 06/06/19] HYDROcodone/APAP 5/325MG [[place] 5-325Mg] 1 tab PO Q6HP PRN 12/14/19 [History Confirmed 12/14/19 Last Taken Unknown] Zolpidem Tartrate [Zolpidem Tartrate ER] 12.5 mg PO HS 12/14/19 [History Confirmed 12/14/19 Last Taken Unknown] cycloSPORINE [Cyclosporine] 100 mg PO BID 12/14/19 [History Confirmed 12/14/19 Last Taken Unknown] Medical - DS: Hosp Hospital Course: 12/14 Mr. 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 Patient states that he awoke this morning on the floor "delirious". History is a bit circular, he tends to want to drift off to sleep. Eventually states that he did fall out of bed and just stayed on the floor. He had an appointment to establish at the pain clinic today, when he awoke this morning he decided just to drive to the clinic to await his appointment. There he is apparently found, was confused and brought to the ED. Patient states he had a couple beers last night. Used to be a heavy drinker but cut back significantly more than 10 years ago. 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 He was using methyl ethyl ketone as a solving, but was trying hard to avoid exposures. There is also a history obtained by Dr. Newman at the patient also had used mercury and some of his hobbies. Patient denies fever, he is felt chilled. Feels a little short of breath, but no cough or sputum production. He does have chronic left trochanteric hip pain which is stable. Denies any abdominal pain or nausea or vomiting. Denies any chest pain/tightness/squeezing. No dysuria. In the ED, the patient is found to have a creatinine of 2.6. Most recent creatinines in our system were 1.2/1.3 range[address] 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 He is being admitted for encephalopathy as well as acute renal failure. Patient is feeling better today. Vaguely recalls coming to the emergency department yesterday. States that he has been "sick" for a few weeks, with malaise. Has felt cold and chilled alternating with feeling hot. Had some headache and myalgias, now with sore throat and congestion. Had evidence of sinusitis on CT. Evening before presentation, the patient had a couple glasses of wine. He was also working with methyl ethyl ketone, was not wearing gloves and notes he did get some on his hands, did not wear respirator, was working inside and not turned on the fan. Patient does not have a sense of smell, unsure if there were vapors. 12/15 Patient feels he is back to baseline this afternoon. Got short of breath late morning, was about 4.9 L positive and his furosemide to been held. Improved significantly after 40 mg of IV furosemide. Creatinine stable. 12/16 Continues to do well, stable for discharge home. Tolerated resumption of diuretics and VIJAYA inhibitor. Discharge diagnosis: Encephalopathy, suspect multifactorial from medications and solvent exposur Secondary discharge diagnosis: #Encephalopathy. This possibly may represent a solvent exposure to methyl ethyl ketone, combined with zolpidem for sleep and wine with dinner the evening prior to presentation. #Acute renal failure on chronic kidney disease. Back to baseline at discharge, CKD stage III, creatinine 2.0. #Ethmoid sinusitis with evidence of other pansinusitis. To continue amoxicillin prescription for 5 further days. RVP negative - Time Spent with Patient Total time spent providing and/or coordinating discharge services: Medical - DS: Exam - Constitutional Vitals: Vital Signs Temp Pulse Resp BP Pulse Ox 12/17/19 07:17 98.4 F 60 18 157/81 96 12/17/19 07:16 60 12/17/19 03:46 98.6 F 58 L 20 160/73 96 12/16/19 22:47 98.3 F 59 L 20 152/81 95 12/16/19 19:44 98.3 F 55 L 20 135/66 95 12/16/19 16:00 97.6 F 56 L 20 136/69 98 12/16/19 12:00 97.6 F 67 18 101/59 97 Intake and Output 12/16/19 12/17/19 12/17/19 21:59 05:59 13:59 Intake Total 660 450 Output Total 350 1300 100 Balance 310 -850 -100 Intake: Oral 660 450 Output: Void Amount 350 1300 100 Other: Meal Dinner Percent of Meal Consumed 100% Feeding Ability Independent Urine Appearance Clear Clear Urine Color Pale Bright Yellow Dark Yellow Urine Odor Normal Normal Stool Size Moderate Stool Color Brown # Bowel Movements 2 Weight 204 lb Additional comments: General: In bed no acute distress Chest: Clear to auscultation, no rales Cardiovascular: Regular rate and rhythm with systolic murmur at the upper right sternal border, trace peripheral edema Abdomen: Obese, soft, nontender Neuro: Alert, oriented to person, place, situation. Ambulatory. Hard of hearingbaseline. Medical - DS: Data Labs on day of discharge: Labs from last 24 hours 12/17/19 12/14/19 05:15 12:21 Sodium 139 Potassium 4.5 Chloride 105 Carbon Dioxide 25 Anion Gap 9.0 BUN 31 H Creatinine 2.0 H GFR Calculation 31 Glucose 97 Calcium 9.4 Cyclosporine 37 L - Impressions CT scan - head IMPRESSION: Mild atrophy and mild chronic ischemic changes in the deep cerebral white matter - expected for age. Opacification right posterior ethmoid air cell and mucosal thickening in the remaining visualized ethmoid air cells. Chest x-ray IMPRESSION: Mild cardiomegaly. No acute disease Medical - DS: A/P - Patient/Caregiver Discharge Instructions Activity: resume usual activities as tolerated Diet: Regular Diet - Follow up Plan Follow up with: Junior Mancera MD [Primary Care Provider] - Disposition: Home, Self-Care Prognosis: Good Rehab Potential: Good Overall status at discharge: patient is back to baseline Medical - DS: Qual - VTE Deep Vein Thrombosis/Pulmonary Embolism Present on Admission: No
== END 2019-12-17 12:10 | disposition home or self-care (01) | DRG 917 ==
LOC: ED 08:19 → MEDSUR 13:34
PROVIDERS: ADMIT Internal Medicine; ATTEND Internal Medicine